=== PATIENT | female | born 1990 | race Two or more races ===

== ENCOUNTER 2024-06-13 23:17 | Emergency (ER) | payer BC, OTHER ==
[~2024-06-13] VITALS: Ht 167.6 cm; Wt 71.7 kg
[2024-06-13 23:41] VITALS: TEMP 98.1
[2024-06-14 02:44] VITALS: BP 109/68; O2SAT 98
== END 2024-06-14 02:44 | disposition home or self-care (01) ==
LOC: ER 23:20
DX: S52.571A Other intraarticular fracture of lower end of right radius, initial encounter for closed fracture (principal); S52.614A Nondisplaced fracture of right ulna styloid process, initial encounter for closed fracture; R51.9 Headache, unspecified; X58.XXXA Exposure to other specified factors, initial encounter; Y93.73 Activity, racquet and hand sports; Y92.89 Other specified places as the place of occurrence of the external cause; Y99.8 Other external cause status
CPT/HCPCS: 73110